=== PATIENT | female | born 1945 | race Caucasian/White ===

== ENCOUNTER 2020-07-11 07:02 | Day surgery (SDC) | payer MEDICARE, BC ==
[2020-07-10 12:21] LABS: BASOPHILS # (AUTO) 0.1 X10'3 (0-0.2); BASOPHILS % (AUTO) 1.2 % (0-1); EOSINOPHILS # (AUTO) 0.3 X10'3 (0-0.9); EOSINOPHILS % (AUTO) 3.9 % (0-6); HEMATOCRIT 40.9 % (35.0-45.0); HEMOGLOBIN 13.9 g/dl (12.0-16.0); LYMPHOCYTES % (AUTO) 27.5 % (21-51); MEAN CORPUSCULAR HEMOGLOBIN 30.2 PG (27.0-31.0); MEAN CORPUSCULAR VOLUME 88.9 FL (78-98); MEAN PLATELET VOLUME 7.8 FL (7.4-10.4); MONOCYTES # (AUTO) 0.7 X10'3 (0-0.9); NEUTROPHILS # (AUTO) 4.3 X10'3 (1.8-7.7); NEUTROPHILS % (AUTO) 58.4 % (42-75); PLATELET COUNT 279 X10'3 (140-440); RED CELL DISTRIBUTION WIDTH 14.1 % (11.5-14.5); WHITE BLOOD COUNT 7.3 X10'3 (4.5-11.0)
[2020-07-10 12:28] LABS: ALBUMIN 3.7 G/DL (3.4-5.0); ANION GAP 9 (8-16); BLOOD UREA NITROGEN 7 MG/DL (7-18); CALCIUM 9.3 MG/DL (8.5-10.1); CHLORIDE 99 MMOL/L (99-107); CREATININE 0.87 MG/DL (0.40-0.90); GLUCOSE 127 MG/DL (70-104); POTASSIUM 4.2 MMOL/L (3.5-5.1); SODIUM 136 MMOL/L (135-145); TOTAL CARBON DIOXIDE 28.5 MMOL/L (24-32); eGFR 64 ML/MIN
[2020-07-10 12:32] LABS: PARTIAL THROMBOPLASTIN TIME 26 SECONDS (22-32)
[2020-07-11] VITALS (16 sets, daily range): BP systolic 134–170; BP diastolic 58–86
[~2020-07-11] VITALS: Ht 167.6 cm; Wt 86.5 kg
[~2020-07-11 07:02] MED LIST: ACET-2615 PO; ATEN25TA PO; BUDE10.2 INH; BUTA-281 PO; FLUO20CA PO; FURO-150 PO; GABA600T13 PO; GARL2000 PO; HYDR-3972 PO; IBUP-24 PO; METF-438 PO; MULT-1141 PO; RANI-327 PO; SYN0.0125T PO; VITA100D6 PO
[2020-07-11] MEDS ORDERED: LIDOcaine/PRILOcaine 5gm cream TP ONE (07:40)
[2020-07-11] MEDS ORDERED: normal saline 1,000 ML IV SCH (07:40)
[2020-07-11] MEDS ORDERED: diphenhydrAMINE 25mg capsule PO PRN (07:40)
[2020-07-11] MEDS ORDERED: acetylcysteine 200 MG/ml 4ml vial PO PRN (07:40)
[2020-07-11] MEDS ORDERED: LORazepam 0.5 MG tablet PO PRN (07:50)
[2020-07-11] MEDS ORDERED: APIX5TAB3 PO (07:53)
[2020-07-11] MEDS ORDERED: FAMO20TA8 PO (07:53)
[2020-07-11] MEDS ORDERED: LEVO137T24 PO (07:53)
[2020-07-11] MEDS ORDERED: DULO60CA65 PO (07:53)
[2020-07-11] MEDS ORDERED: TRAZ-251 PO (07:53)
[2020-07-11] MEDS ORDERED: CALCIUM MAG ZINC (07:57)
[2020-07-11] MEDS ORDERED: CHOL50004 PO (07:57)
[2020-07-11] MEDS ORDERED: VITAMIN B12 PO (07:57)
[2020-07-11] MEDS ORDERED: fentaNYL/PF 50MCG/1 ML 2ML syringe ONE (09:20)
[2020-07-11] MEDS ORDERED: verapamil 2.5 mg/ml inj IV ONE (09:20)
[2020-07-11] MEDS ORDERED: iohexol 350MG/ML 100ml bottle IV ONE (09:20)
[2020-07-11] MEDS ORDERED: midazolam 1 mg/ML 2ml injection ONE (09:20)
[2020-07-11] MEDS ORDERED: nitroGLYCERIN-Tridil 50MG/D5W 250 ML IV ONE (09:20)
[2020-07-11] MEDS ORDERED: LIDOcaine 1% (10mg/ml)w/preservative injection 20ml MDV ONE (09:20)
[2020-07-11] MEDS ORDERED: heparin 1,000unit/ml 10ml vial 10 ML ONE (09:20)
[2020-07-11 10:15] LABS: ISTAT HGB ART 12.6 g/dl (12.0-16.0); ISTAT Hct ART 37 %PCV (35-48); ISTAT O2 SATURATION ARTERIAL 97 % (95-98); ISTAT SOURCE ART
[2020-07-11 11:07] LABS: ISTAT Hct MIX 37 %PCV (35-48); ISTAT O2 SATURATION MIX VENOUS 68 % (60-80); ISTAT SOURCE VEN
[2020-07-11] MEDS ORDERED: pneumococcal 23-VAL P-sac vacc 25 mcg/0.5ml vial IMVAC ONE (11:20)
[2020-07-11] MEDS ORDERED: lisinopril 10 MG tablet PO SCH (12:00)
[2020-07-11] MEDS ORDERED: carvedilol 6.25mg tablet PO SCH (20:00)
[2020-07-12] MEDS ORDERED: spironolactone 25 MG tablet PO SCH (08:30)
== END 2020-07-11 16:00 | disposition home or self-care (01) ==
LOC: SSTAY O 07:02
PROVIDERS: ATTEND Internal Medicine Cardiovascular Disease
DX: R94.39 Abnormal result of other cardiovascular function study (principal); I25.10 Atherosclerotic heart disease of native coronary artery without angina pectoris; I10 Essential (primary) hypertension; E78.5 Hyperlipidemia, unspecified; I48.91 Unspecified atrial fibrillation; I42.9 Cardiomyopathy, unspecified; K21.9 Gastro-esophageal reflux disease without esophagitis; E11.40 Type 2 diabetes mellitus with diabetic neuropathy, unspecified; E03.9 Hypothyroidism, unspecified; J45.909 Unspecified asthma, uncomplicated; F32.9 Major depressive disorder, single episode, unspecified; Z85.3 Personal history of malignant neoplasm of breast; Z79.84 Long term (current) use of oral hypoglycemic drugs; Z79.899 Other long term (current) drug therapy; Z90.710 Acquired absence of both cervix and uterus; Z98.1 Arthrodesis status; Z98.890 Other specified postprocedural states; Z90.49 Acquired absence of other specified parts of digestive tract; Z90.11 Acquired absence of right breast and nipple; Z82.49 Family history of ischemic heart disease and other diseases of the circulatory system; Z80.9 Family history of malignant neoplasm, unspecified
CPT/HCPCS: 36415; 76937; 80048; 82803; 82948; 85014; 85025; 85610; 85730; 93005; 93460; 99152; 99153; C1769; C1894; J1644; J2001; J2250; J3010; J7030; Q0163; Q9967; A4620; A5120; C1751; J3490

== ENCOUNTER 2020-12-27 10:21 | Outpatient (CLI) | payer MEDICARE, BC ==
[2020-12-27] VITALS (21 sets, daily range): BP systolic 119–166; BP diastolic 56–84
[~2020-12-27 10:21] MED LIST changes: -ACET-2615 PO; +APIX5TAB3 PO; -BUDE10.2 INH; +CALCIUM MAG ZINC; +CHOL50004 PO; +DULO60CA65 PO; +FAMO20TA8 PO; -FLUO20CA PO; -FURO-150 PO; -GABA600T13 PO; -GARL2000 PO; -IBUP-24 PO; +LEVO137T24 PO; -MULT-1141 PO; -RANI-327 PO; -SYN0.0125T PO; +TRAZ-251 PO; -VITA100D6 PO; +VITAMIN B12 PO
== END 2020-12-27 23:59 | disposition home or self-care (01) ==
LOC: CARD DIAG 10:21
PROVIDERS: ATTEND Internal Medicine Cardiovascular Disease
DX: R42 Dizziness and giddiness (principal); R55 Syncope and collapse
CPT/HCPCS: 93660

== ENCOUNTER 2021-05-16 12:38 | Emergency (ER) | payer MEDICARE ==
[~2021-05-16] VITALS: Ht 167.6 cm; Wt 78.6 kg
[2021-05-16] MEDS ORDERED: normal saline 1000ML IV soln IV ONE (12:45)
[2021-05-16] MEDS ORDERED: ondansetron/PF 4mg/2ml inj IV ONE (12:45)
[2021-05-16 12:48] VITALS: BP 110/67
[2021-05-16 13:13] LABS: BASOPHILS % (AUTO) 0.8 % (0-1); EOSINOPHILS % (AUTO) 0.3 % (0-6); HEMATOCRIT 45.4 % (35.0-45.0); HEMOGLOBIN 15.6 g/dl (12.0-16.0); LYMPHOCYTES # (AUTO) 1.3 X10'3 (1.1-4.8); LYMPHOCYTES % (AUTO) 50.2 % (21-51); MEAN CORPUSCULAR HEMOGLOBIN 31.5 PG (27.0-31.0); MEAN CORPUSCULAR HGB CONC 34.3 g/dL (33.0-36.5); MEAN CORPUSCULAR VOLUME 91.8 FL (78-98); MEAN PLATELET VOLUME 8.2 FL (7.4-10.4); MONOCYTES # (AUTO) 0.3 X10'3 (0-0.9); MONOCYTES % (AUTO) 11.4 % (2-12); NEUTROPHILS % (AUTO) 37.3 % (42-75); PLATELET COUNT 208 X10'3 (140-440); RED BLOOD COUNT 4.95 X10'6 (4.20-5.60); RED CELL DISTRIBUTION WIDTH 13.1 % (11.5-14.5); WHITE BLOOD COUNT 2.6 X10'3 (4.5-11.0)
[2021-05-16 13:23] LABS: ALANINE AMINOTRANSFERASE 57 U/L (12-78); ALBUMIN 3.8 G/DL (3.4-5.0); ALKALINE PHOSPHATASE 118 IU/L (46-116); ANION GAP 8 (8-16); ASPARTATE AMINO TRANSFERASE 58 U/L (10-37); BILIRUBIN,TOTAL 0.6 MG/DL (0.1-1.0); BLOOD UREA NITROGEN 10 MG/DL (7-18); BUN/CREATININE RATIO 9.1 (6.6-38.0); CALCIUM 8.6 MG/DL (8.5-10.1); CHLORIDE 92 MMOL/L (99-107); GLUCOSE 204 MG/DL (70-104); POTASSIUM 3.7 MMOL/L (3.5-5.1); SODIUM 128 MMOL/L (135-145); TOTAL CARBON DIOXIDE 28.4 MMOL/L (24-32); TOTAL PROTEIN 7.5 G/DL (6.4-8.2); eGFR 48 ML/MIN
[2021-05-16 14:45] LABS: PLATELET ESTIMATE NORMAL; TOTAL CELLS COUNTED 100
[2021-05-16 14:56] LABS: SMUDGE CELLS 1+
[2021-05-16] MEDS ORDERED: acetaminophen 325mg tablet PO ONE (15:05)
[2021-05-16] MEDS ORDERED: normal saline 1000ML IV soln IVB ONE (15:35)
== END 2021-05-16 17:29 | disposition left against medical advice (07) ==
LOC: ER 12:38
DX: R53.1 Weakness (principal); R05.9 Cough, unspecified; R51.9 Headache, unspecified; J02.9 Acute pharyngitis, unspecified; R53.83 Other fatigue; M79.10 Myalgia, unspecified site; E11.42 Type 2 diabetes mellitus with diabetic polyneuropathy; I10 Essential (primary) hypertension; E03.9 Hypothyroidism, unspecified; M19.90 Unspecified osteoarthritis, unspecified site; Z20.822 Contact with and (suspected) exposure to COVID-19; Z79.84 Long term (current) use of oral hypoglycemic drugs; Z79.899 Other long term (current) drug therapy
CPT/HCPCS: 36415; 71045; 80053; 83605; 84145; 85007; 85025; 87040; 87502; 87503; 87635; 93005; 96374; 99285; C9803; J2405; J7030

== ENCOUNTER 2021-12-05 07:09 | Day surgery (SDC) | payer MEDICARE ==
[2021-12-04 12:16] LABS: BASOPHILS % (AUTO) 0.5 % (0-1); EOSINOPHILS # (AUTO) 0.1 X10'3 (0-0.9); LYMPHOCYTES # (AUTO) 1.1 X10'3 (1.1-4.8); LYMPHOCYTES % (AUTO) 19.4 % (21-51); MEAN CORPUSCULAR HEMOGLOBIN 30.8 PG (27.0-31.0); MEAN CORPUSCULAR HGB CONC 33.4 g/dL (33.0-36.5); MEAN CORPUSCULAR VOLUME 92.2 FL (78-98); MEAN PLATELET VOLUME 8.3 FL (7.4-10.4); MONOCYTES # (AUTO) 0.5 X10'3 (0-0.9); NEUTROPHILS # (AUTO) 4.1 X10'3 (1.8-7.7); NEUTROPHILS % (AUTO) 70.1 % (42-75); PLATELET COUNT 232 X10'3 (140-440); RED BLOOD COUNT 4.23 X10'6 (4.20-5.60); RED CELL DISTRIBUTION WIDTH 14.4 % (11.5-14.5); WHITE BLOOD COUNT 5.9 X10'3 (4.5-11.0)
[2021-12-04 12:26] LABS: ALBUMIN 3.8 G/DL (3.4-5.0); ANION GAP 9 (8-16); BLOOD UREA NITROGEN 11 MG/DL (7-18); BUN/CREATININE RATIO 9.6 (6.6-38.0); CALCIUM 9.2 MG/DL (8.5-10.1); CHLORIDE 92 MMOL/L (99-107); CREATININE 1.15 MG/DL (0.40-0.90); GLUCOSE 118 MG/DL (70-104); POTASSIUM 4.5 MMOL/L (3.5-5.1); SODIUM 127 MMOL/L (135-145); TOTAL CARBON DIOXIDE 26.5 MMOL/L (24-32); eGFR 46 ML/MIN
[2021-12-05] VITALS (16 sets, daily range): BP systolic 103–116; BP diastolic 56–76
[~2021-12-05] VITALS: Ht 167.6 cm; Wt 78.9 kg
[2021-12-05] MEDS ORDERED: morphine 10mg/ml inj. IV ONE (07:25)
[2021-12-05] MEDS ORDERED: normal saline 1000ml 1,000 ML IV SCH (07:25)
[2021-12-05] MEDS ORDERED: LORazepam 0.5 MG tablet PO ONE (07:25)
[2021-12-05] MEDS ORDERED: MIDAZolam 1mg/ml 10ml vial IV ONE (07:25)
[2021-12-05] MEDS ORDERED: diphenhydrAMINE 25mg capsule PO ONE (07:25)
[2021-12-05] MEDS ORDERED: atropine 0.1mg/ml 10ml syringe IV ONE (07:25)
[2021-12-05] MEDS ORDERED: amiodarone 150mg/dext, iso-os 100 ML IV ONE (07:25)
[2021-12-05] MEDS ORDERED: LEVO112T5 PO (07:40)
[2021-12-05] MEDS ORDERED: AMIO200T61 PO (07:42)
[2021-12-05] MEDS ORDERED: SPIR25TA5 PO (07:43)
[2021-12-05] MEDS ORDERED: CARV6.253 PO (07:44)
[2021-12-05] MEDS ORDERED: FURO20TA4 PO (07:44)
[2021-12-05] MEDS ORDERED: LOSA25TA41 PO (07:45)
[2021-12-05] MEDS ORDERED: LISI5TAB22 PO (07:49)
== END 2021-12-05 10:50 | disposition home or self-care (01) ==
LOC: SSTAY O 07:09
PROVIDERS: ATTEND Internal Medicine Cardiovascular Disease
DX: I48.91 Unspecified atrial fibrillation (principal); I42.9 Cardiomyopathy, unspecified; I50.9 Heart failure, unspecified; E78.5 Hyperlipidemia, unspecified; I10 Essential (primary) hypertension; E11.9 Type 2 diabetes mellitus without complications; I48.0 Paroxysmal atrial fibrillation; I11.0 Hypertensive heart disease with heart failure; E03.9 Hypothyroidism, unspecified; K21.9 Gastro-esophageal reflux disease without esophagitis; Z90.49 Acquired absence of other specified parts of digestive tract; Z98.890 Other specified postprocedural states; Z90.710 Acquired absence of both cervix and uterus; Z79.899 Other long term (current) drug therapy
CPT/HCPCS: 36415; 80048; 82948; 85025; 85610; 92960; 93005; 94760; 94799; J0282; J2250; J2274; J7030; A4620

== ENCOUNTER 2021-12-09 14:24 | Emergency (ER) | payer MEDICARE ==
[~2021-12-09] VITALS: Ht 167.6 cm; Wt 77.0 kg
[~2021-12-09 14:24] MED LIST changes: +AMIO200T61 PO; -ATEN25TA PO; -BUTA-281 PO; -CALCIUM MAG ZINC; +CARV6.253 PO; -CHOL50004 PO; +FURO20TA4 PO; +LEVO112T5 PO; -LEVO137T24 PO; +LOSA25TA41 PO; +SPIR25TA5 PO; -VITAMIN B12 PO
[2021-12-09] MEDS ORDERED: ondansetron/PF 4mg/2ml inj IV ONE (15:15)
[2021-12-09] MEDS ORDERED: morphine 4 MG/ML inj SYRINge IV ONE ×2 (15:15→18:40)
[2021-12-09 15:45] LABS: BASOPHILS # (AUTO) 0.1 X10'3 (0-0.2); BASOPHILS % (AUTO) 0.9 % (0-1); EOSINOPHILS # (AUTO) 0.1 X10'3 (0-0.9); EOSINOPHILS % (AUTO) 1.6 % (0-6); HEMATOCRIT 38.1 % (35.0-45.0); LYMPHOCYTES # (AUTO) 1.4 X10'3 (1.1-4.8); LYMPHOCYTES % (AUTO) 19.6 % (21-51); MEAN CORPUSCULAR HEMOGLOBIN 31.1 PG (27.0-31.0); MEAN CORPUSCULAR VOLUME 91.6 FL (78-98); MEAN PLATELET VOLUME 8.4 FL (7.4-10.4); MONOCYTES # (AUTO) 0.8 X10'3 (0-0.9); MONOCYTES % (AUTO) 10.9 % (2-12); NEUTROPHILS # (AUTO) 4.7 X10'3 (1.8-7.7); PLATELET COUNT 253 X10'3 (140-440); RED BLOOD COUNT 4.16 X10'6 (4.20-5.60); RED CELL DISTRIBUTION WIDTH 14.6 % (11.5-14.5)
[2021-12-09 15:54] LABS: ALANINE AMINOTRANSFERASE 24 U/L (12-78); ALBUMIN 3.5 G/DL (3.4-5.0); ALBUMIN/GLOBULIN RATIO 1.1 (1.1-1.5); ALKALINE PHOSPHATASE 101 IU/L (46-116); ANION GAP 7 (8-16); ASPARTATE AMINO TRANSFERASE 19 U/L (10-37); BILIRUBIN,TOTAL 1.1 MG/DL (0.1-1.0); BLOOD UREA NITROGEN 11 MG/DL (7-18); CALCIUM 8.4 MG/DL (8.5-10.1); CHLORIDE 90 MMOL/L (99-107); GLUCOSE 109 MG/DL (70-104); LIPASE < 50 U/L (73-393); POTASSIUM 5.1 MMOL/L (3.5-5.1); SODIUM 125 MMOL/L (135-145); TOTAL CARBON DIOXIDE 27.8 MMOL/L (24-32); TOTAL PROTEIN 6.8 G/DL (6.4-8.2); eGFR 48 ML/MIN
--- NOTE | 2021-12-09 16:59 | NUR ---
MULTIPLE ATTEMTS TO INSERT AN IV HAS REMAINED FUTILE. A 4TH STAFF MEMBER IS NOW ATTEMPTING IV INSERTION. MD CALDERÓN MADE AWARE
[2021-12-09] MEDS ORDERED: METF-436 PO (17:25)
[2021-12-09] MEDS ORDERED: dexamethasone sod phosphate 10mg/ml inj IV STA (18:03)
[2021-12-09] MEDS ORDERED: normal saline 1000ML IV soln IVB ONE ×2 (18:05)
[2021-12-09] MEDS ORDERED: oxyCODONE/APAP 10/325mg tablet PO ONE (18:05)
[2021-12-09] MEDS ORDERED: OXYC-150 PO (18:37)
[2021-12-09] MEDS ORDERED: ketorolac trometh. 30mg/ml inj. IV ONE (18:40)
[2021-12-09 19:14] VITALS: BP 101/61
== END 2021-12-09 20:15 | disposition home or self-care (01) ==
LOC: ER 14:24
DX: M25.511 Pain in right shoulder (principal); M54.2 Cervicalgia; M79.601 Pain in right arm; E11.42 Type 2 diabetes mellitus with diabetic polyneuropathy; I48.91 Unspecified atrial fibrillation; I10 Essential (primary) hypertension; E03.9 Hypothyroidism, unspecified; M19.90 Unspecified osteoarthritis, unspecified site; G89.29 Other chronic pain; Z90.710 Acquired absence of both cervix and uterus; Z85.9 Personal history of malignant neoplasm, unspecified; Z98.890 Other specified postprocedural states; Z88.8 Allergy status to other drugs, medicaments and biological substances
CPT/HCPCS: 36415; 80053; 82948; 83690; 85025; 96374; 96375; 99285; J1100; J1885; J2270; J2405; J7030; J7040